=== PATIENT | female | born 1980 | race Caucasian/White ===

== ENCOUNTER 2016-12-02 10:39 | Emergency (ER) | payer OTHER ==
[~2016-12-02] VITALS: Ht 162.6 cm; Wt 122.7 kg
[~2016-12-02 10:39] MED LIST: DOCU-41 PO; FAMO40TA6 PO; IBUP800T28 PO; METO25TA6 PO; NPR500T PO; RANI75TA30 PO; VALA500T38 PO
[2016-12-02 10:43] VITALS: BP 135/85; PULSE 72; RESP 14; O2SAT 100
--- NOTE | 2016-12-02 10:51 | ED.REPORT ---
HPI-General Illness Date of Service Dec 02, 2016 ED Provider: Brennon Toscano MD A 36 year old, obese female with no pertinent medical history presents to the ED following an episode of vertigo that occurred at 0700 this morning. The patient reports an episode of sudden onset dizziness, nausea and lightheadedness after standing up this morning. She contacted her stating that she was having difficulty breathing and was diaphoretic. The patient's came home to find her face down on the ground incontinent to stool, surrounded by vomit. She denies losing consciousness and remembers the near-syncopal episode. She experienced 3 episodes of emesis prior to arrival in the ED and feels significantly nauseous and dizzy upon initial examination. The patient was completely asymptomatic yesterday and has never experienced similar symptoms before. She denies any previous history of seizures. Patient denies any associated chest pain, vision changes or weakness/numbness in her extremities. The patient denies any recent injuries or trauma. She denies any recent diarrhea, abdominal pain, cough, fever or chills. She is not currently anticoagulated. Nursing Notes Stated Complaint: DIZZY Chief Complaint: General Complaint Nursing Notes Reviewed: Yes Allergies: Coded Allergies: Sulfa (Sulfonamide Antibiotics) (Verified Allergy, Severe, 01/18/13) amoxicillin (Verified Allergy, Severe, 01/18/13) Scheduled Docusate Sodium (Colace) 100 Mg Capsule 100 MG PO BID Famotidine (Famotidine) 40 Mg Tablet 40 MG PO BID Metoprolol Tartrate (Metoprolol Tartrate) 25 Mg Tablet 25 MG PO BID Ranitidine Hcl (Zantac 75) 75 Mg Tablet 75 MG PO BID Valacyclovir (Valacyclovir) 500 Mg Tablet 500 MG PO BID Scheduled PRN Docusate Sodium (Colace) 100 Mg Capsule 100 MG PO BID PRN PRN For Constipation Docusate Sodium (Colace) 100 Mg Capsule 100 MG PO DAILY PRN PRN For Constipation Ibuprofen (Ibuprofen) 800 Mg Tablet 800 MG PO Q6H PRN PRN For Pain Naproxen (Naproxen) 500 Mg Tab 500 MG PO BID PRN PRN For Pain General Time Seen by MD: 10:50 Chief Complaint Other (Vertigo) Hx Obtained From: Patient Arrived By: Walk-in Sudden in Onset?: No Onset Occurred: Just prior to arrival Symptom Duration: Since onset Associated with: Reports: Diaphoresis, Dizziness, Nausea, Vomiting, Weakness, Denies: Chest pain, Headache Pertinent Negative: Pt denies other symptoms Recent Healthcare: No recent doctor visit, No recent hospitalization Past Medical History Past Medical History Obesity; otherwise healthy Reports: Obesity Past Surgical History None reported. Family History Non-contributory Smoking History Former Smoker Social History Other Social History: Good social support, , Local resident Ambulatory Status Independent Review of Systems Full Review of Systems Constitutional: Denies: Chills, Fever Respiratory: Reports: Shortness of breath, Denies: Non-productive cough Cardiovascular: Denies: Chest pain GI: Reports: Vomiting, Denies: Abdominal pain, Diarrhea Female: Reports: Incontinence, Denies: Skin: Reports Diaphoresis Neurologic: Reports: Dizziness (vertigo), Lightheaded, Weakness, Denies: Change LOC, Headache, Numbness, Syncope (near syncope), Vision change Complete sys rev & neg: except as marked. Physical Exam Vital Signs Vital Signs Date Time Temp Pulse Resp B/P Pulse Ox O2 Delivery O2 Flow Rate FiO2 12/02/16 12:49 88 15 107/49 100 Room Air 12/02/16 10:43 36.4 72 14 135/85 100 Room Air Initial VS: Reviewed Neck: Supple, Non-tender, Full range of motion Extremities: Vascular intact, Neuro intact, No swelling, No tenderness Skin: Warm, Dry, No cyanosis Psychiatric: Mood/affect normal, Behavior normal, Normal thought content General/Constitutional: Awake, Alert Alertness: Positive: Sleeping but arousable, Somnolent Appearance / Presentation: Positive: Uncomfortable (Mild) Head / Eyes: Atraumatic, Normocephalic, PERRL ENT: Atraumatic, Airway patent Respiratory / Chest: Atraumatic, Breath sounds NL, Breath sounds = bilat, No respiratory distress Cardiovascular: Heart rate NL, Regular rhythm, Heart sounds NL, No murmurs Abdomen: Atraumatic, Soft, Non-tender, No guarding, No rebound Neurologic: Oriented X3, Speech NL, No motor deficits, No sensory deficits, CN II - XII intact, Reflexes equal bilat NEURO: DixHallpike test -worsened symptoms Interpretation & Diagnostics Lab Results Interpretation Result Diagram: 12/02/16 1150 12/02/16 1150 Test 12/02/16 11:50 White Blood Count 14.1th/mm3 (3.8-10.1) Red Blood Count 4.28mil/mm3 (3.90-5.20) Hemoglobin 13.1g/dL (12.0-15.6) Hematocrit 40.2% (35.0-46.0) Mean Corpuscular Volume 93.9fL (81-100) Mean Corpuscular Hemoglobin 30.6pg (27.0-35.0) Mean Corpuscular Hemoglobin Concent 32.6% (32.0-37.0) Red Cell Distribution Width 13.4% (12.3-15.4) Platelet Count 207bil/L (150-400) Neutrophils (%) (Auto) 87.2% (40-74) Lymphocytes (%) (Auto) 7.2% (14-46) Monocytes (%) (Auto) 5.0% (4-12) Eosinophils (%) (Auto) 0.3% (0-5) Basophils (%) (Auto) 0.1% (0-3) Sodium Level 139mEq/L (134-144) Potassium Level 3.5mEq/L (3.5-5.2) Chloride Level 103mEq/L (97-108) Carbon Dioxide Level 23mmol/L (18-29) Blood Urea Nitrogen 21mg/dL (6-20) Creatinine 0.76mg/dL (0.57-1.00) Estimat Glomerular Filtration Rate 123mL/min (>59) Glucose Level 159mg/dL (60-99) Calcium Level 8.4mg/dL (8.5-10.1) Magnesium Level 1.8mg/dL (1.6-2.6) Total Bilirubin 0.2mg/dL (0.0-1.2) Aspartate Amino Transf (AST/SGOT) 21U/L (0-50) Alanine Aminotransferase (ALT/SGPT) 35U/L (0-32) Alkaline Phosphatase 78U/L (25-150) Troponin T 0.010ug/L (0.0-0.011) Total Protein 7.1g/dL (6.4-8.4) Albumin 4.0g/dL (3.4-5.0) Lipase 11U/L (13-60) Hold Sal Top Tube Received (Received) ECG Interpretation ECG Interpretation: Sinus rhythm Rate 72 bpm Prolonged CO interval No ST, T changes Time: :23 Interpreted by: ED physician X-Ray Chest Interpretation Chest Xray Interpretation: IMPRESSION: No acute pulmonary process. Dictated by: Hui Betancourt M.D. on 12/02/2016 at 12:51 Interpretation / Wet Read by: Interpret - Radiologist CT Head Interpretation IMPRESSION: 1. 14 mm AP by 14 mm transverse hyperdensity along the inferior posterior aspect of the fourth ventricle with marked ventricular effacement. Origin of the hyperdensity may be within the fourth ventricle or immediately adjacent to it, with effacement and involvement of the fourth ventricle. Finding is suspicious for a focus of hemorrhage. Underlying mass cannot be excluded. The above findings were discussed with Dr. Brennon Levy on 12/02/16 at 12:20 PM. Dictated by: Hui Betancourt M.D. on 12/02/2016 at 12:18 Study: Head CT no contrast Interpretation / Wet Read by: Interpret - Radiologist Re-Eval/Medical Decision Med Decision/Clinical Course 36-year-old female history of obesity presenting with lightheadedness dizziness since this morning. Symptoms reportedly started while she was lying in bed. She does not believe she hit her head. CT scan shows fourth ventricular hemorrhage. Per her history it does not sound as if this is clearly traumatic though cannot r/o trauma as etiology. Do not see any obvious evidence of external trauma. Her blood pressure is stable. Discussed with [facility] Dr. Jaime, stroke neurology who recommends transfer to ER at [facility] emergently. Sent via airlift. Recommended blood pressure control under 140/90 which she maintained here without intervention. She complained of mild somnolence though arousable at time of transfer. No airway compromise. Time of Eval: 11:54 Re-Evaluation/Progress Note: Hugo hallpike performed. Patient experienced worsening nausea and dizziness. She experieinces to episodes of emesis. The patient is agreeable to the plan to obtain a full work-up. Time of Eval: 12:34 Re-Evaluation/Progress Note: Airlift activated. The patient is rechecked. She is sleeping but arousable. The family is informed of her concerning head CT results and the plan to transfer to [facility]. Time of Eval: 12:50 Re-Evaluation/Progress Note: The patient's questions are addressed. She denies any current or recent headache. All of the patient's 's questions about transfer are addressed. 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 Jaime) - Discussed patient condition and CT results. Accepts transfer. Agrees with the plan to transfer via airlift. Counseled Regarding: Diagnosis, Lab results, Need for transfer Discharge & Departure Primary Impression: Ventricular hemorrhage Disposition: Transfer, Acute Care Facility ([facility]) Receiving Hospital: [facility] - Dr. Jaime Transfer Accepted: Yes Transfer Accepted at: 12:37 Transfer Reason: Higher level of care Spoke with: Specialty physician Patient Status: Stable for transfer Patient Informed: Yes Discharge Condition All VS Reviewed: Yes Condition: Critical Referrals: Nii Jay MD (PCP) Crit Care Except Billable Proc Time Spent: 105-134 minutes (124) Services Performed: Patient management by me, Time spent at bedside, Reviewing test results, Reviewing imaging, Discussing patient care, Documentation in record, Time with fam/surrogate Scribe Attestation Portions of this note were transcribed by Vandana Matthews. I, Dr. Toscano personally performed the history, physical exam and medical decision-making; I reviewed and confirmed the accuracy of the information in the transcribed note. Signed by Fernandez Schwartz, 12/02/16. copies to: Nii Jay MD, Ben M MD Dec 02, 2016 10:51 VANDANA MATTHEWS Dec 02, 2016 10:53
[2016-12-02] MEDS ORDERED: 0.9% Sodium Chloride 1,000 ML IV ONE (11:12)
[2016-12-02] MEDS ORDERED: Ondansetron 2 mg/mL 2 mL Inj IVPUSH ONE (11:15)
[2016-12-02 12:14] LABS: BASOPHILS % (AUTO) 0.1 % (0-3); EOSINOPHILS % (AUTO) 0.3 % (0-5); Mean Corpuscular Hemoglobin 30.6 pg (27.0-35.0); Mean Corpuscular Volume 93.9 fL (81-100); NEUTROPHILS % (AUTO) 87.2 % (40-74); Platelet Count 207 bil/L (150-400)
--- NOTE | 2016-12-02 12:24 | DRSVH ---
PROCEDURE: CT BRAIN WITHOUT CONTRAST ([id number]) INDICATIONS: dizziness TECHNIQUE: Noncontrast 4.5 mm thick angled axial sections acquired from the foramen magnum to the vertex, with c oronal reformats. COMPARISON: None. FINDINGS: Image quality: Excellent. There is a focus of hyperdensity along the posterior inferior aspect of the fourth ventricle with mar ked effacement of the ventricle. It measures 14 mm AP by 14 mm transverse. There is no hydrocephalus or hemorrhage within the lateral or third ventricles. The cortical sulci are normal in size and appearance for the patient's stated age. There is no midlin e shift. Globes are symmetrical. Sinuses are aerated. Osseous structures are intact. IMPRESSION: 1. 14 mm AP by 14 mm transverse hyperdensity along the inferior posterior aspect of the fourth ventri meryl with marked ventricular effacement. Origin of the hyperdensity may be within the fourth ventricle or immediately adjacent to it, with effacement and involvement of the fourth ventricle. Finding is s uspicious for a focus of hemorrhage. Underlying mass cannot be excluded. The above findings were discussed with Dr. Brennon Levy on 12/02/16 at 12:20 PM. Dictated by: Hui Betancourt M.D. on 12/02/2016 at 12:18 Approved by: Hui Betancourt M.D. on 12/02/2016 at 12:22
[2016-12-02 12:49] VITALS: BP 107/49; PULSE 88; RESP 15; O2SAT 100
--- NOTE | 2016-12-02 12:53 | DRSVH ---
PROCEDURE: X-RAY CHEST ONE VIEW, PORTABLE ([id number]) INDICATIONS: dizziness TECHNIQUE: One view of the chest was acquired. COMPARISON: , , CHEST 1VW (PORTABLE), 01/18/2013, 5:44. FINDINGS: Surgical changes and devices: None. Lungs and pleura: No pleural effusions or pneumothorax. Lungs are clear. Mediastinum: Mediastinal contours appear normal. Heart size is normal. Bones and chest wall: No suspicious bony lesions. Overlying soft tissues appear unremarkable. IMPRESSION: No acute pulmonary process. Dictated by: Hui Betancourt M.D. on 12/02/2016 at 12:51 Approved by: Hui Betancourt M.D. on 12/02/2016 at 12:51
[2016-12-02 12:57] LABS: Magnesium 1.8 mg/dL (1.6-2.6); TROPONIN T 0.01 ug/L (0.0-0.011)
[2016-12-02 16:03] LABS: APPEARANCE,URINE HAZY (CLEAR,HAZY); COLOR,URINE YELLOW (YELLOW); PH,URINE 5.5 (5.0-8.0)
[2016-12-02 16:04] LABS: OCCULT BLOOD,URINE NEGATIVE (NEGATIVE); UROBILINOGEN,URINE NORMAL (NORMAL)
== END 2016-12-02 13:15 | disposition short-term general hospital (02) ==
LOC: SED 10:39
DX: I61.5 Nontraumatic intracerebral hemorrhage, intraventricular (principal); Z87.891 Personal history of nicotine dependence; Z88.0 Allergy status to penicillin; Z88.2 Allergy status to sulfonamides
CPT/HCPCS: 36415; 70450; 71010; 80053; 81000; 81025; 83690; 83735; 84484; 85025; 93005; 96361; 96374; 99285; J2405; J7030